=== PATIENT | male | born 1950 | race Caucasian/White ===

== ENCOUNTER 2022-02-21 21:59 | Inpatient (IN) | payer MEDICARE ==
[~2022-02-21] VITALS: Ht 180.3 cm; Wt 78.0 kg
[~2022-02-21 21:59] MED LIST: AMLO5 PO; ATOR40TA PO; Amiodarone HCl200 MG PO; COMBIVENT RESPIM4 G1 INH; GABA300 PO; METO25 PO; STRIVERDI RESPIM4 G1 INH
[2022-02-21 22:50] LABS: BASOPHILS ABSOLUTE AUTO 0.08 K/mm3 (0.00-0.23); BASOPHILS PERCENT AUTO 0 % (0-2); EOSINOPHILS ABSOLUTE AUTO 0.07 K/mm3 (0.00-0.68); EOSINOPHILS PERCENT AUTO 0 % (0-6); Hematocrit 33.7 % (37.0-53.0); Hemoglobin 10.8 g/dL (13.5-17.5); IMMATURE GRAN ABSOLUTE AUTO 0.18 K/mm3 (0.00-0.10); IMMATURE GRAN PERCENT AUTO 1 % (0-1); LYMPHOCYTES ABSOLUTE AUTO 4.06 K/mm3 (0.84-5.20); LYMPHOCYTES PERCENT AUTO 18 % (21-46); MONOCYTES ABSOLUTE AUTO 1.42 K/mm3 (0.16-1.47); MONOCYTES PERCENT AUTO 6 % (4-13); Mean Corpuscular HGB 31.9 pg (26.0-34.0); Mean Corpuscular Volume 99 fL (80-100); Mean Platelet Volume 10.8 fL (9.1-12.4); NEUTROPHILS ABSOLUTE AUTO 16.38 K/mm3 (1.96-9.15); NEUTROPHILS PERCENT AUTO 74 % (41-73); NRBC ABSOLUTE 0.09 K/mm3 (0.00-0.02); NRBC Auto 0.4 /100 WBC (0.0-0.2); Platelet Count 127 K/mm3 (150-400); RDW Coefficient Variation 12.8 % (11.7-14.2); RDW Standard Deviation 46.9 fL (35.1-46.3); Red Blood Cell Count 3.39 M/mm3 (4.30-5.90); White Blood Cell Count 22.19 K/mm3 (4.00-11.30)
[2022-02-21 23:04] LABS: International Normalized Ratio 1.19; Prothrombin Time Results 12.4 Sec (9.7-11.5)
[2022-02-21 23:07] LABS: Albumin, Blood 2.8 g/dL (3.4-5.0); Albumin/Globulin Ratio 1.1 (0.8-1.8); Bilirubin, Total 0.2 mg/dL (0.1-1.0); Bun/Creatinine Ratio 40.5 (12.0-20.0); Calcium, Blood 7.9 mg/dL (8.5-10.1); Creatinine, Blood 0.96 mg/dL (0.60-1.20); Globulin, Blood 2.5 g/dL (2.2-4.0); Potassium, Blood 4.1 mmol/L (3.5-5.5); Total Protein, Blood 5.3 g/dL (6.4-8.2)
[2022-02-22 00:06] LABS: BASOPHILS ABSOLUTE AUTO 0.02 K/mm3 (0.00-0.23); BASOPHILS PERCENT AUTO 0 % (0-2); EOSINOPHILS ABSOLUTE AUTO 0.01 K/mm3 (0.00-0.68); EOSINOPHILS PERCENT AUTO 0 % (0-6); Hematocrit 28.2 % (37.0-53.0); Hemoglobin 9.2 g/dL (13.5-17.5); IMMATURE GRAN ABSOLUTE AUTO 0.08 K/mm3 (0.00-0.10); IMMATURE GRAN PERCENT AUTO 1 % (0-1); LYMPHOCYTES PERCENT AUTO 10 % (21-46); MONOCYTES ABSOLUTE AUTO 0.74 K/mm3 (0.16-1.47); MONOCYTES PERCENT AUTO 5 % (4-13); Mean Corpuscular HGB 31.9 pg (26.0-34.0); Mean Corpuscular HGB Conc 32.6 g/dL (31.5-36.5); Mean Corpuscular Volume 98 fL (80-100); NEUTROPHILS ABSOLUTE AUTO 11.87 K/mm3 (1.96-9.15); NEUTROPHILS PERCENT AUTO 84 % (41-73); Platelet Count 117 K/mm3 (150-400); RDW Coefficient Variation 12.9 % (11.7-14.2); RDW Standard Deviation 46.3 fL (35.1-46.3); Red Blood Cell Count 2.88 M/mm3 (4.30-5.90); White Blood Cell Count 14.12 K/mm3 (4.00-11.30)
[2022-02-22 00:30] LABS: Influenza A, PCR NEGATIVE (NEGATIVE); Influenza B, PCR NEGATIVE (NEGATIVE); Resp Syncytial Virus, PCR NEGATIVE (NEGATIVE); SARS-Cov-2 (COVID-19) PCR, MMC NEGATIVE (NEGATIVE)
--- NOTE | 2022-02-22 02:29 | NUR ---
ASSUMED CARE PATIENT ARRIVED TO ICU ON ROOM AIR, ALERT AND ORIENTED X 4. PROTONIX INF @ 10ML/HR. VSS. PATIENT , ANA, BROUGHT TO BEDSIDE AND DR. WHITE EXPLAINING ENDOSCOPY PROCEDURE. CODE STATUS CONFIRMED AND CONSENTS SIGNED BY PATIENT. REPORT RECEIVED FROM ALEXANDRE ONEILL.
[2022-02-22 02:34] LABS: Magnesium, Blood 1.9 mg/dL (1.6-2.4); Phosphorus, Blood 3.1 mg/dL (2.5-4.9)
--- NOTE | 2022-02-22 02:55 | NUR ---
02/22/22 0255 Melany Méndez History, Chart, Medications and Allergies reviewed before start of procedure.DR SHRESTHA PROVIDING ANESTHESIA
[2022-02-22 06:31] LABS: BASOPHILS ABSOLUTE AUTO 0.01 K/mm3 (0.00-0.23); BASOPHILS PERCENT AUTO 0 % (0-2); EOSINOPHILS PERCENT AUTO 0 % (0-6); Hematocrit 33.9 % (37.0-53.0); Hemoglobin 11.4 g/dL (13.5-17.5); IMMATURE GRAN ABSOLUTE AUTO 0.04 K/mm3 (0.00-0.10); IMMATURE GRAN PERCENT AUTO 0 % (0-1); LYMPHOCYTES ABSOLUTE AUTO 0.92 K/mm3 (0.84-5.20); LYMPHOCYTES PERCENT AUTO 7 % (21-46); MONOCYTES ABSOLUTE AUTO 0.84 K/mm3 (0.16-1.47); MONOCYTES PERCENT AUTO 7 % (4-13); Mean Corpuscular HGB 31.5 pg (26.0-34.0); Mean Corpuscular HGB Conc 33.6 g/dL (31.5-36.5); Mean Corpuscular Volume 94 fL (80-100); Mean Platelet Volume 10.5 fL (9.1-12.4); NEUTROPHILS ABSOLUTE AUTO 10.98 K/mm3 (1.96-9.15); NEUTROPHILS PERCENT AUTO 86 % (41-73); Platelet Count 88 K/mm3 (150-400); RDW Coefficient Variation 15.1 % (11.7-14.2); RDW Standard Deviation 52.5 fL (35.1-46.3); Red Blood Cell Count 3.62 M/mm3 (4.30-5.90); White Blood Cell Count 12.79 K/mm3 (4.00-11.30)
--- NOTE | 2022-02-22 06:31 | NUR ---
SHIFT SUMMARY PATIENT HAD MULTIPLE MAROON BM WITH CLOTS PRESENT. BM APPEARS WITH URGENCY AND IS INCONTINENT AT TIMES. UPPER ENDOSCOPY WAS COMPLETED WITH NO INTERVENTIONS AT THIS TIME. ONE AREA OF CONCERN SEEN BY DR. WHITE- PICTURES IN CHART-NOT ACTIVELY BLEEDING AND PLAN TO RESCOPE 02/23 @ 1000 IF PATIENT REMAINS STABLE. NO LONGER PLANNING TO TRANSFER AT THIS TIME-TAKEN OFF WAITING LIST AT [facility]. FOLLOWING ENDOSCOPY, PATIENT HAD SEVERE HYPOTENSION WITH MAPS IN THE 40'S AT LOWEST. CALL MADE TO DR. JANE-500ML BOLUS NS GIVEN WITH BP RETURNING TO MAPS ABOVE 65. PATIENT ALSO REPORTED FEELING SOB WITH SPO2 HIGH 80'S-LOW 90'S. 2LPM VIA NC PLACED ON PATIENT WITH REPORTED IMPROVEMENT IN SOB AND SPO2 HIGH 90'S-100%. ONE EPISODE OF NAUSEA AFTER ENDOSCOPY WITH CONTINUED DRY HEAVING. ZOFRAN 4MG IV GIVEN WITH RELIEF OF NAUSEA. PATIENT USES CALL LIGHT AND URINAL AT BEDSIDE. USING BS CURRENTLY FOR BM D/T UNSTABLE BP'S AND BLOOD LOSS. NO OTHER CHANGES DURING SHIFT.
[2022-02-22 06:49] LABS: Albumin, Blood 2.8 g/dL (3.4-5.0); Albumin/Globulin Ratio 1.1 (0.8-1.8); Bilirubin, Total 0.8 mg/dL (0.1-1.0); Bun/Creatinine Ratio 41.3 (12.0-20.0); Calcium, Blood 7.9 mg/dL (8.5-10.1); Creatinine, Blood 0.87 mg/dL (0.60-1.20); Globulin, Blood 2.5 g/dL (2.2-4.0); Potassium, Blood 4.7 mmol/L (3.5-5.5); Total Protein, Blood 5.3 g/dL (6.4-8.2)
--- NOTE | 2022-02-22 08:50 | NUR ---
AM NOTE.... ASSUMED CARE OF PT AT 0700. THE PT IS A&Ox4 AND WAS ADMITTED FOR A GI BLEED. CURRENTLY THE PT IS STABLE WITH HR IN THE LOW 100'S AND HIS MAP IS >70. THE PT CONTINUES TO HAVE MAROON STOOLS WITH SOME CLOTS NOTED. HE IS ABLE TO USE THE URINAL WHILE IN BED INDEPENDENTLY. THE PT DENIES ANY N/V OR ABD PAIN AT THIS TIME. NO SWELLING OR EDEMA IS NOTED ON ASSESSMENT. WILL CONTINUE TO MONITOR.
--- NOTE | 2022-02-22 09:20 | NUR ---
PT UPDATE... AT APROX 0900 THE PT'S HR CHANGED FROM SINUS IN THE 90'S-100'S TO AFIB WITH RVR IN THE 140'S-160'S TOUCHING 170'S AT TIMES. THE PT IS NOT SYMPTOMATIC WITH THIS CONVERSION AND HIS BP IS STABLE WITH MAPS >75 THE PT DENIES ANY CHEST PAIN/PRESSURE OR PALPITATIONS. PROVIDER WAS CALLED AND NEW ORDERS FOR A CARDIZEM DRIP AND A H&H CHECK WERE OBTAINED. WILL CONTINUE TO MONITOR.
[2022-02-22 10:26] LABS: Hematocrit 37.9 % (37.0-53.0); Hemoglobin 12.5 g/dL (13.5-17.5)
--- NOTE | 2022-02-22 14:03 | NUR ---
PT UPDATE.... THE PT WAS PLACED ON THE BED MALDONADO PER HIS REQUEST. ONCE THE PT WAS DONE THIS RN NOTED THAT THE PT'S STOOL WAS MIO RED BLOOD WITH CLEAR MUCOUS MEDIUM IN SIZE. THE PT'S VS AT THIS TIME ARE STABLE WITH A BP OF 93/79 MAP 84, HR IS 102 SINUS TACH WITH PVCs THE PT IS ON A CARDIZEM DRIP RUNNING AT 15MG/HR. THE PT CONVERTED FROM AFIB W/RVR TO SR W/PVCs AT 1215. WILL CONTINUE TO MONITOR.
[2022-02-22 16:04] LABS: Hematocrit 30.2 % (37.0-53.0); Hemoglobin 10.4 g/dL (13.5-17.5)
--- NOTE | 2022-02-22 17:35 | NUR ---
SHIFT SUMMARY... NO ACUTE CHANGES SINCE PREVIOUS NOTES, THE PT WAS STARTED ON PO CARDIZEM AND THE DRIP WAS STOPPED AT 1730. THE PT'S VS ARE CURRENTLY STABLE. THE PT HAS HAD SEVERAL EPISODES OF MIO RED BLOOD WHICH WAS REPORTED TO THE PROVIDERS AND THE PT'S H&H IS TRENDING DOWN WITH ANOTHER CHECK IN 6HRS. THE PT'S LACTIC ACID WAS 2.2, PROVIDER WAS NOTIFIED AND ANTIBIOTICS AND BLOOD CULTURES WERE ORDERED. THE BLOOD CULTURES OBTAINED PRIOR TO STARTING THE ANTIBITOCS. THE PT WAS ABLE TO STAND AND WALK TO THE TOILET WITH MINIMAL ASSIST WITH NO CHANGES TO HIS HR OR BP. THE PT'S WAS AT THE BEDSIDE AND UPDATED ON THE PT'S CONDITION AND PLAN OF CARE. THE PT STARTED TO C/O ABD DISCOMFORT STATING "MY GUT JUST FEELS YUCKY." BT ARE HYPERACTIVE AND PER THE PT'S HIS BELLY SEEMS "BLOATED" THE PT'S ABD IS SOFT TO PALPATION AND SLIGHTLY TENDER TO PALPATION ON THE LEFT SIDE. THE PT HAS HAD MINIMAL PO INTAKE THIS SHIFT APROX 300MLS OF WATER AND NONE OF HIS MEAL TRAYS. PLAN OF CARE IS FOR THE PT TO HAVE ANOTHER EGD TOMORROW AT [address] WHITE, DR. WHITE WAS AT THE BEDSIDE AT 1720 TO ASSESS THE PT, NO NEW ORDERS WERE GIVEN AND THE PROVIDER WAS UPDATED ON THE PT'S MIO RED STOOL. CALL LIGHT IN REACH WILL CONTINUE TO MONITOR UNTIL REPORT IS GIVEN TO ONCOMING RN.
[2022-02-22 22:50] LABS: Hematocrit 27.3 % (37.0-53.0); Hemoglobin 9.2 g/dL (13.5-17.5)
[2022-02-23 05:50] LABS: Hematocrit 27.1 % (37.0-53.0); Mean Corpuscular HGB 31.1 pg (26.0-34.0); Mean Corpuscular HGB Conc 33.2 g/dL (31.5-36.5); Mean Corpuscular Volume 94 fL (80-100); Platelet Count 73 K/mm3 (150-400); RDW Coefficient Variation 15.4 % (11.7-14.2); Red Blood Cell Count 2.89 M/mm3 (4.30-5.90); White Blood Cell Count 9.74 K/mm3 (4.00-11.30)
--- NOTE | 2022-02-23 06:10 | NUR ---
SHIFT SUMMARY PATIENT SLEPT THROUGH MOST OF THE SHIFT. INCONTINENT SCANT BM THAT ARE CLEAR, MUCOUSY, WITH RED SPECKS. NO VOMITING, BUT ONE EPISODE OF NAUSEA THIS AM-ZOFRAN 4MG IV GIVEN WITH RELIEF. VSS REMAINED STABLE T/O SHIFT. PROTONIX GTT STILL INF AND NS @ 100ML/HR. PATIENT WAS ON CLEAR LIQUIDS AT BEGINNING OF SHIFT AND NPO SINCE MIDNIGHT IN PREP FOR ENDOSCOPY TODAY AT 1000. PATIENT HAD APPROPRIATE URINE OUTPUT DURING SHIFT USING URINAL. THIS MORNING THE PATIENT HAD A WHEEZE T/O AND SPO2 DECREASED TO LOW 90'S. CALL MADE TO DR. JANE AND ORDER OBTAINED FOR HOME ALBUTEROL INHALER. AFTER PLACING THE ORDER AND REASSESSING THE PATIENT, THE WHEEZE IS GONE AND SPO2 IS HIGH 90'S.
[2022-02-23 06:19] LABS: Albumin, Blood 2.7 g/dL (3.4-5.0); Albumin/Globulin Ratio 1.2 (0.8-1.8); Bilirubin, Total 0.9 mg/dL (0.1-1.0); Bun/Creatinine Ratio 19.8 (12.0-20.0); Calcium, Blood 7.9 mg/dL (8.5-10.1); Creatinine, Blood 0.81 mg/dL (0.60-1.20); Globulin, Blood 2.2 g/dL (2.2-4.0); Potassium, Blood 3.8 mmol/L (3.5-5.5); Total Protein, Blood 4.9 g/dL (6.4-8.2)
--- NOTE | 2022-02-23 07:51 | NUR ---
AM NOTE... ASSUMED CARE OF PT AT 0700 THE PT IS A&Ox4. THE PT IS NPO FOR AN EGD THIS AM WITH DR. WHITE. THE PT'S VS ARE STABLE AT THIS TIME WITH SR IN THE 90'S AND MAPS >75. L/S CLEAR T/O ON RA WITH O2 SATS >90%. NO EDEMA NOTED ON ASSESSMENT. THE PT DENIES ANY CHEST PAIN/PRESSURE N/V OR SOB OR ABD PAIN. CALL LIGHT IN REACH WILL CONTINUE TO MONITOR.
[2022-02-23 08:59] LABS: Hematocrit 28.5 % (37.0-53.0); Hemoglobin 8.9 g/dL (13.5-17.5)
--- NOTE | 2022-02-23 10:29 | NUR ---
02/23/22 1029 Travon Dykes HISTORY, CHART, MEDICATIONS AND ALLERGIES REVIEWED BEFORE START OF PROCEDURE. PATIENT CONFIRMS NPO STATUS AND AGREES WITH SCHEDULED PROCEDURE. 3-LEAD EKG REVIEWED WITH PHYSICIAN PRIOR TO START OF PROCEDURE. MONITOR INTACT WITH CONTINUOUS PULSE OXIMETRY,CAPNOGRAPHY, 3-LEAD EKG, INTERMITTENT BP. SUPPLEMENTAL O2 TO BE TITRATED THROUGHOUT PROCEDURE TO MAINTAIN O2 SATURATION ABOVE 90%. PATIENT DETERMINED TO BE ASA APPROPRIATE FOR PROPOFOL SEDATION PRIOR TO START OF PROCEDURE BY DR. WHITE.
[2022-02-23] MEDS ORDERED: ELIQUIS5 M2 PO (14:00)
--- NOTE | 2022-02-23 17:39 | NUR ---
SHIFT SUMMARY.... NO ACUTE NEGATIVE CHANGES NOTED THIS SHIFT. THE PT'S VS HAVE BEEN STABLE. THE PT HAS BEEN UP IN THE CHAIR FOR DINNER AND TOLERATED THIS WELL. THE PT HAS ALSO WALKED TO THE TOILET WITH MIN ASSIST. THE PT'S PROTONIX DRIP WAS D/C'd AND 40MG IV PUSH PROTONIX WAS ORDERED BID. THE PT IS TOLERATING CLEAR LIQUIDS WELL. WILL CONTINUE TO MONITOR UNTIL REPORT IS GIVEN TO ONCOMING RN.
--- NOTE | 2022-02-23 20:32 | NUR ---
ASSUMED CARE PATIENT LYING IN BED AWAKE AND WATCHING TV. GREETS STAFF UPON ENTERING ROOM AND TRACKS TO SOUND. DENIES PAIN AND NAUSEA. NS @ 100ML/HR DC'D AND CHANGED RATE TO TKO. URINAL AND DRINKS AT BEDSIDE, CALL LIGHT WITHIN REACH. REPORT COMPLETED WITH ALEXANDRE DUKE.
[2022-02-24 03:51] LABS: Hematocrit 26.1 % (37.0-53.0); Hemoglobin 8.6 g/dL (13.5-17.5); Mean Corpuscular HGB 31.3 pg (26.0-34.0); Mean Corpuscular Volume 95 fL (80-100); Mean Platelet Volume 10.5 fL (9.1-12.4); Platelet Count 76 K/mm3 (150-400); RDW Standard Deviation 52.5 fL (35.1-46.3); Red Blood Cell Count 2.75 M/mm3 (4.30-5.90); White Blood Cell Count 8.29 K/mm3 (4.00-11.30)
[2022-02-24 04:07] LABS: Albumin, Blood 2.5 g/dL (3.4-5.0); Bilirubin, Total 0.6 mg/dL (0.1-1.0); Bun/Creatinine Ratio 17.3 (12.0-20.0); Calcium, Blood 7.7 mg/dL (8.5-10.1); Creatinine, Blood 0.75 mg/dL (0.60-1.20); Globulin, Blood 2.4 g/dL (2.2-4.0); Potassium, Blood 3.5 mmol/L (3.5-5.5); Total Protein, Blood 4.9 g/dL (6.4-8.2)
--- NOTE | 2022-02-24 04:08 | NUR ---
SHIFT SUMMARY NO ACUTE EVENTS DURING THE SHIFT. PATIENT SLEPT T/O SHIFT, USED URINAL AT BEDSIDE APPROPRIATELY. MAINTAINED SINUS RHYTHM QUICKLY AFTER ASSUMING CARE WITH RATE 60'S-80'S. NO BM DURING SHIFT, DENIES NAUSEA. PATIENT REMAINED AFEBRILE AND WITHOUT PAIN. NS CHANGED FROM 100ML/HR TO TKO PER DR. JANE NOW THAT PATIENT IS TOLERATING PO LIQUIDS. DIET ALSO CHANGED TO ADVANCE TOLERATED-ALTHOUGH PATIENT DID NOT REQUEST FOOD DURING SHIFT. NO OTHER CHANGES DURING SHIFT.
--- NOTE | 2022-02-24 09:33 | NUR ---
AM NOTE... ASSUMED CARE OF PT AT 0700 THE PT IS A&Ox4. VS ARE STABLE THIS TIME. THE PT DOES C/O OF HIS STOMACH "FEELING BAD." THE PT IS ON RA WITH O2 SATS >90% L/S CLEAR T/O DIM IN THE BASES. DR. CALLE WAS CONSULTED FOR A POSSIBLE MESENTERIC BLOCKAGE. THE PT HAS BEEN KEPT NPO BY THIS RN INCASE HE GOES TO THE RELATIONSHIP SPECIALIST TODAY. THE PT HAS NOT HAD A BM AND DENIES ANY ABD PAIN AT THIS TIME. BT PRESENT AND HYPOACTIVE, ABD IS SOFT AND NONTENDER TO PALPATION. CALL LIGHT IN REACH WILL CONTINUE TO MONITOR.
--- NOTE | 2022-02-24 17:06 | NUR ---
SHIFT SUMMARY... AT 1705 THE PT LEFT FOR THE [facility] [employer] FOR A PROCEDURE WITH DR. CALLE. THE PT'S VS HAVE BEEN STABLE T/O THIS SHIFT. THE PT HAS DENIED ANY N/V OR ABD PAIN BUT HAS C/O OF HIS STOMACH FEELING "BAD" AND HAVING A MINIMAL APPETITE RECENTLY. THE PT'S WAS AT THE BEDSIDE FOR MOST OF THIS SHIFT, SHE WAS UPDATED ON THE PT'S CONDITION AND PLAN OF CARE. WILL CONTINUE TO MONITOR UNTIL REPORT IS GIVEN TO ONCOMING RN.
--- NOTE | 2022-02-24 18:30 | NUR ---
PT UPDATE.... 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 THE PT HAS A RIGHT FEMORAL SITE WITH AN ANGIO SEAL, NO SWELLING, BLEEDING OR HEMATOMA IS NOTED DURING THIS ASSESSMENT. THE PT'S VS WERE STABLE AND THE PT DENIED ANY PAIN. CALL LIGHT IN REACH WILL CONTINUE TO MONITOR.
--- NOTE | 2022-02-24 20:17 | NUR ---
ASSUMED CARE PATIENT LYING IN BED AWAKE AND WATCHING TV. NS AND FLAGYL INF TO JERMAN PG. A&O X 4, CLEAR LS T/O AND SPO2 MID 94% ON ROOM AIR. VSS STABLE-EXCEPT HR 140'S-150'S WHILE EATING DINNER, SCHEDULED PO CARDIZEM ADMINISTERED AND WILL CONTINUE TO MONITOR. BT ACTIVE T/O-DENIES NAUSEA AND ABD PN. PULSES STRONG IN CRISTOPHER RADIAL, DP, AND PT. ANGIOSEAL TO RT FEMORAL ACCESS SITE WITH TEGADERM CHG DRESSING OVER PLACE. NO HEMATOMA, SWELLING, PAIN OR BLEEDING AT SITE. PATIENT NOW SITTING UP IN BED TO EAT DINNER 2HR POST ANGIOSEAL PLACEMENT WITH SITE REMAINING STABLE. REPORT COMPLETED WITH ALEXANDRE DUKE.
--- NOTE | 2022-02-25 06:47 | NUR ---
SHIFT SUMMARY PATIENT SLEPT T/O SHIFT. HAD ONE BM AT BEGINNING OF SHIFT THAT WAS BROWN LOOSE STOOL WITH A TINGE OF MAROON TO IT. PATIENT DENIED ABD PN AND NAUSEA. ANGIOSEAL SITE AT THE RT FEMORAL REMAINS FREEE OF HEMATOMA AND PAIN-SLIGHT BLEEDING UNDERNEATH TEGADERM CHG AFTER USING TOILET. SITE REMAINS STABLE AND UNCHANGED SINCE THEN. PATIENT ATE APPROXIMATELY 40% OF DINNER LAST NIGHT. NO OTHER EVENTS DURING SHIFT.
--- NOTE | 2022-02-25 08:01 | NUR ---
ASSUMED CARE REPORT FROM SHEREEN SCHROEDER AT 0700. PT RESTING IN BED. A&OX 4. ANSWERS QUESTIONS APPROPRIATELY, FOLLOWS COMMANDS. LUNGS CLEAR. AFIB ON MONITOR, RATE 100-110'S, PO CARDIZEM GIVEN. BP STABLE. PT DENIES LIGHTHEADNESS, DIZZINESS OR OTHER SYMPTOMS. PT P/W/D. ABD ROUND, SOFT, NON TENDER. REPORTS ONE BM YESTERDAY c SMALL AMOUNT OF MAROON. USING URINAL IN BED s DIFFICULTLY. RIGHT FEMORAL SITE WNL. PT USING CALL LIGHT APPROPRIATELY, ABLE TO MAKE NEEDS KNOWN. AWAITING HEAVY EQUIPMENT SERVICE MANAGER TO DETERMINE IF PT WILL HAVE PROCEDURE TODAY. UPDATED PT. WILL CONTINUE TO MONITOR.
[2022-02-25 08:49] LABS: Hematocrit 31.1 % (37.0-53.0); Hemoglobin 10.2 g/dL (13.5-17.5); Mean Corpuscular HGB 30.8 pg (26.0-34.0); Mean Corpuscular HGB Conc 32.8 g/dL (31.5-36.5); Mean Corpuscular Volume 94 fL (80-100); Mean Platelet Volume 10.8 fL (9.1-12.4); Platelet Count 102 K/mm3 (150-400); RDW Coefficient Variation 14.6 % (11.7-14.2); RDW Standard Deviation 49.3 fL (35.1-46.3); Red Blood Cell Count 3.31 M/mm3 (4.30-5.90); White Blood Cell Count 7.72 K/mm3 (4.00-11.30)
--- NOTE | 2022-02-25 14:35 | NUR ---
Pt. is awake and welcomes my visit. Spouse is present. Pt. is pleasant but is unsettled because he hasn't heard from his doctors regarding his prognosis. Listen theraputically with a calming presence. Establish rapport with the Pt. and his spouse. Prayed for Pt. Pt. verbalized gratitude for the spiritual care visit.
--- NOTE | 2022-02-25 16:26 | NUR ---
SHIFT SUMMARY/TRANSFER TO PCU NO ACUTE CHANGES THIS SHIFT. POST SPLITTER PROCEDURE POSTPONED UNTIL TOMORROW. PT HAD ONE EPISODE OF LIGHTHEADNESS, DIZZINESS AFTER BATHING IN ROOM. ALSO HAD SMALL MAROON STOOL X 1. STATES SYMPTOMS HAVE NOT REOCCURED SINCE THAT TIME. TOLERATED SNACK AND PO FLUIDS WELL. VSS. REPORT TO ROMAN SCHROEDER. PT TRANSFERRED TO PCU 12.
--- NOTE | 2022-02-25 18:02 | NUR ---
ARRIVAL PCU / END OF SHIFT PT BROUGHT TO PCU-12 BY WHEEL CHAIR FROM ICU-8 @ APPROX 1630. PT A&O X4. PT ABLE TO STAND AND WEAKLY TRANSFER FROM WHEELCHAIR TO PCU BED W/ SBA. VSS. SPO2 > 92% ON RA. MONITOR SHOWING AFIB, HR 120s-130s, DECREASE TO 90s-110s AFTER PO CARDIZEM ADMINISTRATION PER EMAR. PT W/ R FEM SITE W/ SLIGHT OOZING NOTED WITHIN CHG DRESSING. NS GTT INFUSING PER ORDERS. PLAN FOR PT NPO AFTER MIDNIGHT FOR POSSIBLE ANGIO TOMORROW.
[2022-02-26 04:23] LABS: Hematocrit 27.7 % (37.0-53.0); Hemoglobin 9.5 g/dL (13.5-17.5); Mean Corpuscular HGB 31.4 pg (26.0-34.0); Mean Corpuscular HGB Conc 34.3 g/dL (31.5-36.5); Mean Corpuscular Volume 91 fL (80-100); Mean Platelet Volume 10.5 fL (9.1-12.4); Platelet Count 105 K/mm3 (150-400); RDW Coefficient Variation 14.5 % (11.7-14.2); RDW Standard Deviation 46.9 fL (35.1-46.3); Red Blood Cell Count 3.03 M/mm3 (4.30-5.90); White Blood Cell Count 6.48 K/mm3 (4.00-11.30)
[2022-02-26 04:38] LABS: Albumin, Blood 2.5 g/dL (3.4-5.0); Bilirubin, Total 0.4 mg/dL (0.1-1.0); Bun/Creatinine Ratio 10.1 (12.0-20.0); Calcium, Blood 7.4 mg/dL (8.5-10.1); Creatinine, Blood 0.69 mg/dL (0.60-1.20); Globulin, Blood 2.6 g/dL (2.2-4.0); Total Protein, Blood 5.1 g/dL (6.4-8.2)
--- NOTE | 2022-02-26 05:58 | NUR ---
SHIFT SUMMARY NO ACUTE CHANGES THIS SHIFT. VSS, PT A&OX4. SP02>90% ON RA. PT HR MOSTLY 110'S DURING SHIFT BUT UP TO 140'S WHEN AMBULATING TO BSC OR USING URINAL AT BEDSIDE. PT HAS R GROIN SITE RECOVERED, UNCHANGED FROM DAY SHIFT. NO BRUISING, NO HEMATOMA, SITE SOFT. PT DENIED DIZZINESS. UP TO BSC TO HAVE LARGE BROWN/MAROON BM X1. FLUIDS INFUSING PER EMAR. PT SLEPT OFF AND ON DURING NOC. NPO SINCE MIDNIGHT FOR PROCEDURE. CALL LIGHT IN REACH.
--- NOTE | 2022-02-26 18:11 | NUR ---
SHIFT SUMMARY PT A&O X4. VSS. SPO2 > 92% ON RA. MONITOR SHOWING INTERMITTENT AFIB, HR 100-130s VS NSR, HR 70s w/ PT CONVERTING BACK & FORTH T/O THE DAY. PT HR BRIEFLY UP TO 160 W/ AMBULATION TO BATHROOM, THEN DECREASES W/ REST. PT DENIES LIGHTHEADEDNESS/DIZZINESS W/ GETTING UP. PT LAST BM SMALL W/ NO NOTED APPEARANCE OF BLOOD IN STOOL. NS GTT INFUSING PER ORDERS. MD CALLE TO PT BEDSIDE REPORTING NO ANGIO TO BE PERFORMED TODAY. PT PROVIDED W/ DINNER.
--- NOTE | 2022-02-27 05:50 | NUR ---
SHIFT SUMMARY NO ACUTE CHANGES. PT A&OX4. SP02>90% ON RA. PT HR ELEVATED WHEN AMBULATING OR USING URINAL. AT APPROX 0420 PT CONVERTED FROM AFIB HR 110'S TO NSR, HR CURRENTLY 70'S. PT DENIED PAIN. NO BM THIS SHIFT. AMBULATED TO BATHROOM, NO C/O OF DIZZINESS. FLUIDS INFUSED PER EMAR. SLEPT MOST OF NIGHT. CALL LIGHT IN REACH.
[2022-02-27 08:33] LABS: Hematocrit 30.1 % (37.0-53.0); Hemoglobin 10.3 g/dL (13.5-17.5); Mean Corpuscular HGB 31.8 pg (26.0-34.0); Mean Corpuscular HGB Conc 34.2 g/dL (31.5-36.5); Mean Corpuscular Volume 93 fL (80-100); Mean Platelet Volume 10.4 fL (9.1-12.4); Platelet Count 142 K/mm3 (150-400); RDW Coefficient Variation 14.8 % (11.7-14.2); RDW Standard Deviation 48.7 fL (35.1-46.3); Red Blood Cell Count 3.24 M/mm3 (4.30-5.90); White Blood Cell Count 7.29 K/mm3 (4.00-11.30)
[2022-02-27 09:10] LABS: Albumin, Blood 2.7 g/dL (3.4-5.0); Bilirubin, Total 0.6 mg/dL (0.1-1.0); Bun/Creatinine Ratio 8.8 (12.0-20.0); Calcium, Blood 7.6 mg/dL (8.5-10.1); Creatinine, Blood 0.68 mg/dL (0.60-1.20); Globulin, Blood 2.6 g/dL (2.2-4.0); Potassium, Blood 3.3 mmol/L (3.5-5.5); Total Protein, Blood 5.3 g/dL (6.4-8.2)
[2022-02-27] MEDS ORDERED: OMEP20ER PO (13:05)
[2022-02-27] MEDS ORDERED: DILT120 PO (13:05)
--- NOTE | 2022-02-27 14:48 | NUR ---
DISCHARGE HOME PT A&O X4. VSS. SPO2 > 92% ON RA. MONITOR SHOWING SR, HR 80s. DISCHARGE INSTRUCTIONS REVIEWED W/ PT. PIVs REMOVED. PT TAKEN OUT BY WHEELCHAIR @ APPROX 1340.
== END 2022-02-27 13:20 | disposition home or self-care (01) | DRG 377 ==
LOC: ER 21:59 → ICUE 22:00 → ICUW 22:00 → ICUE 02-22 02:21 → PCU 02-25 16:20
PROVIDERS: Emergency Medicine; Internal Medicine; Internal Medicine Gastroenterology; Student in an Organized Health Care Education/Training Program; ADMIT Internal Medicine
PROC: 30233N1 Transfusion of Nonautologous Red Blood Cells into Peripheral Vein, Percutaneous Approach (ICD-10-PCS; 2022-02-21)
PROC: 30283B1 Transfusion of Nonautologous 4-Factor Prothrombin Complex Concentrate into Vein, Percutaneous Approach (ICD-10-PCS; 2022-02-22)
PROC: 0DJ08ZZ Inspection of Upper Intestinal Tract, Via Natural or Artificial Opening Endoscopic (ICD-10-PCS; principal; 2022-02-23 10:00)
PROC: B41D1ZZ Fluoroscopy of Aorta and Bilateral Lower Extremity Arteries using Low Osmolar Contrast (ICD-10-PCS; 2022-02-24)
PROC: B4141ZZ Fluoroscopy of Superior Mesenteric Artery using Low Osmolar Contrast (ICD-10-PCS; 2022-02-24)
DX: K92.0 Hematemesis (principal); R57.8 Other shock; D68.32 Hemorrhagic disorder due to extrinsic circulating anticoagulants; K55.1 Chronic vascular disorders of intestine; E87.2 Acidosis; I71.4 Abdominal aortic aneurysm, without rupture; I48.0 Paroxysmal atrial fibrillation; I73.9 Peripheral vascular disease, unspecified; J44.9 Chronic obstructive pulmonary disease, unspecified; I10 Essential (primary) hypertension; K28.9 Gastrojejunal ulcer, unspecified as acute or chronic, without hemorrhage or perforation; D69.6 Thrombocytopenia, unspecified; E78.00 Pure hypercholesterolemia, unspecified; K21.9 Gastro-esophageal reflux disease without esophagitis; R00.0 Tachycardia, unspecified; Z20.822 Contact with and (suspected) exposure to COVID-19; M19.90 Unspecified osteoarthritis, unspecified site; Z95.820 Peripheral vascular angioplasty status with implants and grafts; Z98.890 Other specified postprocedural states; Z79.01 Long term (current) use of anticoagulants; Z85.118 Personal history of other malignant neoplasm of bronchus and lung; Z87.891 Personal history of nicotine dependence; Z79.899 Other long term (current) drug therapy; Z79.02 Long term (current) use of antithrombotics/antiplatelets; Z79.51 Long term (current) use of inhaled steroids; Z88.8 Allergy status to other drugs, medicaments and biological substances
CPT/HCPCS: 0241U; 36245; 36246; 36415; 36430; 74174; 75625; 75716; 75726; 75774; 76937; 80053; 82272; 82330; 82728; 83540; 83550; 83605; 83735; 84100; 85014; 85018; 85025; 85027; 85610; 85730; 86850; 86900; 86901; 86920; 87040; 93005; 93010; 94760; 96365-59; 96375; 96375-59; 96376-59; 99152; 99153; 99291-25; A9270; C1751; C1760; C1769; C1887; C1894; C9113; J0171; J0696; J1430; J1644; J2250; J2370; J2405; J2704; J3010; J7030; J7040; J7120; J7168; P9016; Q9967

== ENCOUNTER 2022-09-08 16:39 | Emergency (ER) | payer OTHER ==
[~2022-09-08] VITALS: Ht 180.3 cm; Wt 71.2 kg
[~2022-09-08 16:39] MED LIST changes: +DILT120 PO; +ELIQUIS5 M2 PO; +OMEP20ER PO
[2022-09-08 17:35] LABS: BASOPHILS ABSOLUTE AUTO 0.02 K/mm3 (0.00-0.23); BASOPHILS PERCENT AUTO 0 % (0-2); EOSINOPHILS ABSOLUTE AUTO 0.05 K/mm3 (0.00-0.68); EOSINOPHILS PERCENT AUTO 1 % (0-6); Hematocrit 27.6 % (37.0-53.0); Hemoglobin 9.2 g/dL (13.5-17.5); IMMATURE GRAN ABSOLUTE AUTO 0.05 K/mm3 (0.00-0.10); IMMATURE GRAN PERCENT AUTO 1 % (0-1); LYMPHOCYTES ABSOLUTE AUTO 0.87 K/mm3 (0.84-5.20); LYMPHOCYTES PERCENT AUTO 17 % (21-46); MONOCYTES ABSOLUTE AUTO 1.04 K/mm3 (0.16-1.47); MONOCYTES PERCENT AUTO 20 % (4-13); Mean Corpuscular HGB 35.1 pg (26.0-34.0); Mean Corpuscular HGB Conc 33.3 g/dL (31.5-36.5); Mean Corpuscular Volume 105 fL (80-100); Mean Platelet Volume 11.5 fL (9.1-12.4); NEUTROPHILS ABSOLUTE AUTO 3.08 K/mm3 (1.96-9.15); NEUTROPHILS PERCENT AUTO 60 % (41-73); Platelet Count 120 K/mm3 (150-400); RDW Coefficient Variation 21.8 % (11.7-14.2); RDW Standard Deviation 83.9 fL (35.1-46.3); Red Blood Cell Count 2.62 M/mm3 (4.30-5.90); White Blood Cell Count 5.11 K/mm3 (4.00-11.30)
[2022-09-08 17:44] LABS: Albumin, Blood 3.1 g/dL (3.4-5.0); Albumin/Globulin Ratio 0.9 (0.8-1.8); Bilirubin, Total 0.5 mg/dL (0.1-1.0); Bun/Creatinine Ratio 11.8 (12.0-20.0); Calcium, Blood 8.7 mg/dL (8.5-10.1); Creatinine, Blood 1.02 mg/dL (0.60-1.20); Globulin, Blood 3.4 g/dL (2.2-4.0); Potassium, Blood 3.7 mmol/L (3.5-5.5); Total Protein, Blood 6.5 g/dL (6.4-8.2)
== END 2022-09-08 20:41 | disposition home or self-care (01) ==
LOC: ER 16:39
PROVIDERS: Emergency Medicine
DX: I95.9 Hypotension, unspecified (principal); E78.5 Hyperlipidemia, unspecified; I10 Essential (primary) hypertension; J44.9 Chronic obstructive pulmonary disease, unspecified; K21.9 Gastro-esophageal reflux disease without esophagitis; Z87.891 Personal history of nicotine dependence; Z79.899 Other long term (current) drug therapy
CPT/HCPCS: 71045; 80053; 85025; 93005; 93010; 96360; 99285-25; J7030

== ENCOUNTER 2024-12-25 18:32 | Emergency (ER) | payer OTHER ==
[~2024-12-25] VITALS: Ht 180.3 cm; Wt 72.6 kg
[2024-12-25 18:33] VITALS: BP 122/88
[2024-12-25 18:53] LABS: BASOPHILS ABSOLUTE AUTO 0.03 K/mm3 (0.00-0.23); BASOPHILS PERCENT AUTO 0 % (0-2); EOSINOPHILS ABSOLUTE AUTO 0.11 K/mm3 (0.00-0.68); EOSINOPHILS PERCENT AUTO 1 % (0-6); Hematocrit 46.7 % (37.0-53.0); Hemoglobin 15.6 g/dL (13.5-17.5); IMMATURE GRAN ABSOLUTE AUTO 0.04 K/mm3 (0.00-0.10); IMMATURE GRAN PERCENT AUTO 1 % (0-1); LYMPHOCYTES PERCENT AUTO 22 % (21-46); MONOCYTES PERCENT AUTO 9 % (4-13); Mean Corpuscular HGB 31.9 pg (26.0-34.0); Mean Corpuscular HGB Conc 33.4 g/dL (31.5-36.5); Mean Corpuscular Volume 96 fL (80-100); NEUTROPHILS ABSOLUTE AUTO 5.75 K/mm3 (1.96-9.15); NEUTROPHILS PERCENT AUTO 67 % (41-73); Platelet Count 109 K/mm3 (150-400); RDW Coefficient Variation 12.8 % (11.7-14.2); RDW Standard Deviation 45.1 fL (35.1-46.3); Red Blood Cell Count 4.89 M/mm3 (4.30-5.90); White Blood Cell Count 8.63 K/mm3 (4.00-11.30)
[2024-12-25] MEDS ORDERED: NS 1,000 ML IV SCH (18:55)
[2024-12-25 19:12] LABS: Ethanol (Alcohol), Blood, Med <3 mg/dL
[2024-12-25 19:13] LABS: Alanine Aminotransfer (ALT/SGP 25 U/L (12-78); Albumin, Blood 3.3 g/dL (3.4-5.0); Alk Phos 90 U/L (50-136); Anion Gap 13 mmol/L (3-11); Aspartate Aminotrans (AST/SGOT 22 U/L (12-37); Bilirubin, Total 0.5 mg/dL (0.1-1.0); Blood Urea Nitrogen 12 mg/dL (8-24); CO2, Blood 27 mmol/L (21-32); Calcium, Blood 8.7 mg/dL (8.5-10.1); Chloride, Blood 102 mmol/L (98-108); Creatinine, Blood 0.86 mg/dL (0.60-1.20); Globulin, Blood 3.4 g/dL (2.2-4.0); Glomerular Filtration Rate 90 (60-); Glucose, Blood 97 mg/dL (70-99); Potassium, Blood 4.3 mmol/L (3.5-5.5); Sodium, Blood 138 mmol/L (136-145); Total Protein, Blood 6.7 g/dL (6.4-8.2)
[2024-12-25 21:08] LABS: U Amphetamine Screen Not Detected; U Barbituate Screen Not Detected; U Benzodiazapine Screen Not Detected; U Buprenorphine Screen Not Detected; U Cannabinoids Screen Not Detected; U Cocaine Screen Not Detected; U Methadone Screen Not Detected; U Methamphetamine Screen Not Detected; U Opiates Screen Not Detected; U Oxycodone Screen Not Detected; U Phencyclidine Screen Not Detected
== END 2024-12-26 03:48 | disposition home or self-care (01) ==
LOC: ER 18:32
PROVIDERS: Emergency Medicine
DX: S06.5XAA Traumatic subdural hemorrhage with loss of consciousness status unknown, initial encounter (principal); S00.33XA Contusion of nose, initial encounter; R55 Syncope and collapse; E78.5 Hyperlipidemia, unspecified; I10 Essential (primary) hypertension; J44.9 Chronic obstructive pulmonary disease, unspecified; K21.9 Gastro-esophageal reflux disease without esophagitis; Z87.891 Personal history of nicotine dependence; Z85.118 Personal history of other malignant neoplasm of bronchus and lung; Z92.21 Personal history of antineoplastic chemotherapy; Z92.3 Personal history of irradiation; Z79.01 Long term (current) use of anticoagulants; Z79.899 Other long term (current) drug therapy; W18.30XA Fall on same level, unspecified, initial encounter
CPT/HCPCS: 70450; 70486; 72125; 80053; 80320; 83690; 85025; 86850; 86900; 86901; J7030